=== PATIENT | male | born 1970 | race Caucasian/White ===

== ENCOUNTER 2017-04-24 15:06 | Emergency (ER) | payer SELFPAY ==
[2017-04-24] MEDS ORDERED: HYDROcodone/ACETAMIN 5-325 MG* 1 TAB PO ONE (15:35)
[2017-04-24] MEDS ORDERED: Ibuprofen TAB* 600 MG PO ONE (15:35)
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
[2017-04-24 17:30] VITALS: BP 134/91
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
== END 2017-04-24 17:28 | disposition home or self-care (01) ==
LOC: ED 15:06
DX: S50.02XA Contusion of left elbow, initial encounter (principal); S44.92XA Injury of unspecified nerve at shoulder and upper arm level, left arm, initial encounter; Y35.811A Legal intervention involving manhandling, law enforcement official injured, initial encounter
CPT/HCPCS: 99282; A9270-GY